=== PATIENT | male | born 1980 | race Caucasian/White ===

== ENCOUNTER 2023-01-09 19:24 | Emergency (ER) | payer OTHER, SELFPAY ==
[2023-01-09 19:31] VITALS: BP 156/92; PULSE 67; RESP 16; TEMP 36.6; O2SAT 97; BMI 27.1
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
[2023-01-09 20:09] VITALS: BP 135/78; PULSE 74; RESP 16; TEMP 36.6; O2SAT 97
[2023-01-09 20:10] VITALS: BP 135/78; PULSE 74; RESP 16; TEMP 36.6
== END 2023-01-09 20:11 | disposition home or self-care (01) ==
LOC: ED 20:10
PROVIDERS: Emergency Provider Emergency Medicine Emergency Medical Services
DX: S09.93XA Unspecified injury of face, initial encounter (principal); W05.1XXA Fall from non-moving nonmotorized scooter, initial encounter
CPT/HCPCS: 99283; 99284